=== PATIENT | male | born 1970 | race Caucasian/White ===

== ENCOUNTER 2018-12-21 11:36 | Emergency (ER) | payer BC, SELFPAY ==
[2018-12-21 11:39] VITALS: BP 123/83; PULSE 103; RESP 18; TEMP 36.3; O2SAT 96
--- NOTE | 2018-12-21 11:46 | W.ED.GENAD ---
Discharge Plan Disposition Patient Disposition: HOME Condition: Fair Discharge Details Chief Complaint: GenMedical Clinical Impression: Flu-like symptoms Primary Care Provider: None,None ED Provider: Prachi Nagel Home Meds and New Rx's Prescriptions: No Action No Known Home Meds RF: 0 Discharge Instructions Instructions: Influenza (ED) Additional Instructions: Continue to encourage hydration. Tylenol and ibuprofen as needed for discomfort. Stop smoking. chest pain coordinator will contact you in regard to establishing primary care. If you develop fever/chills, shortness of breath, difficulty breathing, inability to stay hydrated or other new/worsening symptoms please seek care urgently once again. Stand Alone Forms: Work Release Medical Decision Making Patient is a 48-year-old male presenting today with flulike illness. He reports that he has had symptoms for the past 5 days. Endorses cough, congestion, sore throat. Denies any GI upset. Endorses body aches and fevers. Reports that overall he is feeling much improved. States that he has a mild lingering cough at this time but otherwise symptoms have resolved. However, patient was unable to go to work with his flulike illness and presents today at the request of his employer for evaluation. Patient is an active smoker, encourage smoking cessation. On exam, he appears nontoxic with stable vital signs. Lungs are clear, no respiratory distress. Plan to discharge patient home diagnosis of flulike illness that is now improving. Work note given. We discussed new/worsening symptoms and when to seek care urgently once again. I have asked our home care associate to help facilitate follow-up with primary care. All of his questions and concerns were addressed and he is in agreement this plan. HPI General Mode of arrival: ambulatory. Date/Time Provider Initiated Documentation: 12/21/18 11:42. Limitations to Documentation: no limitations. Information obtained by: patient. History of Present Illness 48 year old M presents to the emergency department with the chief complaint of flu like illness, described as mild, Patient started experiencing this day(s) (5) and it has been other (improving). No relieving factors improve symptom(s), No exacerbating factors reported . Patient notes cough, fever/chills (none currently) and headaches (improved); denies chest pain, loss of appetite, nausea/vomiting, rash and shortness of breath. Patient did receive the following treatments prior to arrival, none Related Data Home Medications Medication Instructions Recorded Confirmed Unknown [No Known Home Meds] 08/22/15 08/22/15 Allergies Allergy/AdvReac Type Severity Reaction Status Date / Time No Known Drug Allergies Allergy Unverified 07/29/15 12:52 General Stated Complaint: GenMedical MICHELLE: 4 Review of Systems Constitutional Reports as per HPI, Reports chills, Reports fatigue, Reports fever(s), Denies headache(s) and Denies poor appetite Eyes Reports as per HPI, Denies eye discharge and Denies irritation ENT Denies headache(s), Reports nasal congestion, Reports nasal discharge, Reports sore throat, Denies throat swelling and Denies tongue swelling Cardiovascular Reports as per HPI, Denies chest pain and Denies dyspnea Respiratory Reports as per HPI, Reports cough, Denies pain on inspiration, Denies pain with cough, Denies dyspnea, Denies stridor and Denies wheezing Gastrointestinal Reports as per HPI, Denies abdominal pain, Denies change in bowel habits, Denies nausea and Denies vomiting Integumentary/Breasts Reports as per HPI and Denies rash Neurologic Denies headache(s) Endocrine Reports fatigue Allergic/Immunologic Denies throat swelling, Denies tongue swelling and Denies wheezing [facility] Surgical History EXE R SIDED NECK MASS (08/22/15) Social History Smoking/Tobacco Use Status: Current every day Exam Const General: cooperative, healthy appearing, comfortable, no acute distress, well developed and well groomed Nutritional Appearance: average body habitus and well nourished Orientation: alert and awake [facility] Head: normal to inspection, normocephalic and atraumatic Ears: hearing grossly normal bilaterally, external ears normal and TM's normal bilaterally General nose exam: external nose normal and nares normal Face and sinus: normal facial exam, sinuses nontender and face symmetric Mouth: oral mucosae normal, lip normal, tongue normal, oropharynx normal and moist mucous membranes Teeth and gingiva: dentition normal Throat: posterior oropharynx normal, tonsils normal and uvula midline Eyes General: appearance normal, both eyes and all related structures Neck Neck: normal visual inspection, full ROM, no lymphadenopathy and no meningeal signs Resp Effort & Inspection: normal respiratory effort, able to speak in complete sentences and no respiratory distress Auscultation: clear to auscultation bilaterally, no rales, no rhonchi and no wheezes Cardio Rate: regular rate Rhythm: regular rhythm Heart Sounds: S1 normal and S2 normal Skin General skin exam: no rashes or lesions noted Neuro General: alert and awake Cognition: normal cognition Speech: speech normal Gait: normal gait Psych Appearance: grossly normal and well kempt Mental Status: mental status grossly normal Speech and Movement: speech and movement normal Course Vital Signs Temperature 36.3 C L 12/21/18 11:39 Pulse 103 H 12/21/18 11:39 Respiratory Rate 18 12/21/18 11:39 Blood Pressure 123/83 12/21/18 11:39 Pulse Oximetry 96 12/21/18 11:39 Temperature 36.3 C L 12/21/18 11:39 Temperature Source Temporal Artery Scan 12/21/18 11:39 Pulse 103 H 12/21/18 11:39 Respiratory Rate 18 12/21/18 11:39 Respiratory Effort Non-Labored 12/21/18 11:43 Respiratory Depth Normal 12/21/18 11:43 Blood Pressure 123/83 12/21/18 11:39 Blood Pressure Position Sitting 12/21/18 11:39 Pulse Oximetry 96 12/21/18 11:39 Oxygen Delivery Method Room Air 12/21/18 11:39 Oxygen Flow Rate 0 12/21/18 11:39 Pain Level 0 12/21/18 11:39
--- NOTE | 2018-12-21 11:56 | ED.GENADUL_ITS ---
Discharge Plan Disposition Patient Disposition: HOME Condition: Fair Discharge Details Chief Complaint: GenMedical Clinical Impression: Flu-like symptoms Primary Care Provider: None,None ED Provider: Prachi Nagel Home Meds and New Rx's Prescriptions: No Action No Known Home Meds RF: 0 Discharge Instructions Instructions: Influenza (ED) Additional Instructions: Continue to encourage hydration. Tylenol and ibuprofen as needed for discomfort. Stop smoking. laboratory coordinator will contact you in regard to establishing primary care. If you develop fever/chills, shortness of breath, difficulty breathing, inability to stay hydrated or other new/worsening symptoms please seek care urgently once again. Stand Alone Forms: Work Release Medical Decision Making Patient is a 48-year-old male presenting today with flulike illness. He reports that he has had symptoms for the past 5 days. Endorses cough, congestion, sore throat. Denies any GI upset. Endorses body aches and fevers. Reports that overall he is feeling much improved. States that he has a mild lingering cough at this time but otherwise symptoms have resolved. However, patient was unable to go to work with his flulike illness and presents today at the request of his employer for evaluation. Patient is an active smoker, encourage smoking cessation. On exam, he appears nontoxic with stable vital signs. Lungs are clear, no respiratory distress. Plan to discharge patient home diagnosis of flulike illness that is now improving. Work note given. We discussed new/worsening symptoms and when to seek care urgently once again. I have asked our child care attendant school to help facilitate follow-up with primary care. All of his questions and concerns were addressed and he is in agreement this plan. HPI General Mode of arrival: ambulatory . Date/Time Provider Initiated Documentation: 12/21/18 11:42 . Limitations to Documentation: no limitations . Information obtained by: patient . History of Present Illness 48 year old M presents to the emergency department with the chief complaint of flu like illness, described as mild, Patient started experiencing this day(s) (5) and it has been other (improving). No relieving factors improve symptom(s), No exacerbating factors reported . Patient notes cough, fever/chills (none currently) and headaches (improved); denies chest pain, loss of appetite, nausea/vomiting, rash and shortness of breath. Patient did receive the following treatments prior to arrival, none Related Data Home Medications Medication Instructions Recorded Confirmed Unknown [No Known Home Meds] 08/22/15 08/22/15 Allergies Allergy/AdvReac Type Severity Reaction Status Date / Time No Known Drug Allergies Allergy Unverified 07/29/15 12:52 General Stated Complaint: GenMedical MICHELLE: 4 Review of Systems Constitutional Reports as per HPI, Reports chills, Reports fatigue, Reports fever(s), Denies headache(s) and Denies poor appetite Eyes Reports as per HPI, Denies eye discharge and Denies irritation ENT Denies headache(s), Reports nasal congestion, Reports nasal discharge, Reports sore throat, Denies throat swelling and Denies tongue swelling Cardiovascular Reports as per HPI, Denies chest pain and Denies dyspnea Respiratory Reports as per HPI, Reports cough, Denies pain on inspiration, Denies pain with cough, Denies dyspnea, Denies stridor and Denies wheezing Gastrointestinal Reports as per HPI, Denies abdominal pain, Denies change in bowel habits, Denies nausea and Denies vomiting Integumentary/Breasts Reports as per HPI and Denies rash Neurologic Denies headache(s) Endocrine Reports fatigue Allergic/Immunologic Denies throat swelling, Denies tongue swelling and Denies wheezing FOR[facility]LY [facility] Surgical History EXE R SIDED NECK MASS (08/22/15) Social History Smoking/Tobacco Use Status: Current every day Exam Const General: cooperative, healthy appearing, comfortable, no acute distress, well developed and well groomed Nutritional Appearance: average body habitus and well nourished Orientation: alert and awake [facility] Head: normal to inspection, normocephalic and atraumatic Ears: hearing grossly normal bilaterally, external ears normal and TM's normal bilaterally General nose exam: external nose normal and nares normal Face and sinus: normal facial exam, sinuses nontender and face symmetric Mouth: oral mucosae normal, lip normal, tongue normal, oropharynx normal and moist mucous membranes Teeth and gingiva: dentition normal Throat: posterior oropharynx normal, tonsils normal and uvula midline Eyes General: appearance normal, both eyes and all related structures Neck Neck: normal visual inspection, full ROM, no lymphadenopathy and no meningeal signs Resp Effort & Inspection: normal respiratory effort, able to speak in complete sentences and no respiratory distress Auscultation: clear to auscultation bilaterally, no rales, no rhonchi and no wheezes Cardio Rate: regular rate Rhythm: regular rhythm Heart Sounds: S1 normal and S2 normal Skin General skin exam: no rashes or lesions noted Neuro General: alert and awake Cognition: normal cognition Speech: speech normal Gait: normal gait Psych Appearance: grossly normal and well kempt Mental Status: mental status grossly normal Speech and Movement: speech and movement normal Course Vital Signs Temperature 36.3 C L 12/21/18 11:39 Pulse 103 H 12/21/18 11:39 Respiratory Rate 18 12/21/18 11:39 Blood Pressure 123/83 12/21/18 11:39 Pulse Oximetry 96 12/21/18 11:39 Temperature 36.3 C L 12/21/18 11:39 Temperature Source Temporal Artery Scan 12/21/18 11:39 Pulse 103 H 12/21/18 11:39 Respiratory Rate 18 12/21/18 11:39 Respiratory Effort Non-Labored 12/21/18 11:43 Respiratory Depth Normal 12/21/18 11:43 Blood Pressure 123/83 12/21/18 11:39 Blood Pressure Position Sitting 12/21/18 11:39 Pulse Oximetry 96 12/21/18 11:39 Oxygen Delivery Method Room Air 12/21/18 11:39 Oxygen Flow Rate 0 12/21/18 11:39 Pain Level 0 12/21/18 11:39
--- NOTE | 2018-12-22 07:56 | PDOC.ERCMPRO ---
Care Management Progress Note 12/22-Prachi WASHINGTON requested assistance with establishing a PCP (Freddy Quesada information management specialist). No ED f/u needed. Referral faxed to [facility] this am.
--- NOTE | 2018-12-22 07:58 | CMPROGNOTE_ITS ---
Care Management Progress Note 12/22-Prachi WASHINGTON requested assistance with establishing a PCP (Freddy Quesada catalytic converter operator helper). No ED f/u needed. Referral faxed to [facility] this am.
== END 2018-12-21 11:52 | disposition home or self-care (01) ==
PROVIDERS: Emergency Provider Physician Assistant
DX: J11.1 Influenza due to unidentified influenza virus with other respiratory manifestations (principal); F17.210 Nicotine dependence, cigarettes, uncomplicated
CPT/HCPCS: 99282

== ENCOUNTER 2019-09-12 13:04 | Emergency (ER) | payer BC, SELFPAY ==
[2019-09-12 13:14] VITALS: BP 128/81; PULSE 98; RESP 18; TEMP 36.7; O2SAT 96
[2019-09-12] MEDS: HYDROcodone 5/Acetaminophen 325 TAB PO (13:40)
[2019-09-12] MEDS: Ibuprofen 600 MG TAB PO (13:40)
--- NOTE | 2019-09-12 14:00 | DI.RAD_ITS ---
EXAM: XR CLAVICLE RT INDICATION: fall, midshaft and lateral pain. COMPARISON: XR SHOULDER RT COMPLETE 2+V from 09/12/2019 TECHNIQUE: 2D digital imaging was performed. FINDINGS: There is a comminuted fracture in the mid clavicle. There is significant separation of fracture fragm ents. AC joint is intact. There are severe degenerative changes at the glenohumeral joint with a iza ne-on-bone appearance. There is prominent spurring inferiorly at the humeral head. No glenoid or hu meral fracture or dislocation is seen. IMPRESSION: Comminuted midclavicular fracture.
--- NOTE | 2019-09-12 14:31 | ED.GENADUL_ITS ---
Discharge Plan Disposition Patient Disposition: HOME Condition: Stable Discharge Details Chief Complaint: Orthopedic Clinical Impression: Closed fracture of right clavicle Primary Care Provider: None,None ED Provider: Telly Cross Home Meds and New Rx's Prescriptions: No Action aspirin 81 mg tablet,delayed release (DR/EC) 81 mg PO DAILY Qty: 14 RF: 0 naproxen 250 mg tablet 250 mg PO BID PRN (Reason: pain, moderate) Qty: 60 RF: 0 oxycodone 5 mg tablet 5 mg PO Q4H MDD 60mg PRN (Reason: pain, severe) Qty: 36 RF: 0 Discharge Instructions Instructions: Clavicle Fracture (ED) Additional Instructions: Upon discharge please go straight to the orthopedic office for examination and arrangement of further treatment of your fracture. Referrals: Sy Jay MD [ [facility] STAFF PHYSICIAN] - Discharge Data Discharge Date/Time-TO BE ENTERED AT DEPARTURE: 09/12/19 14:58 Medical Decision Making Patient presenting to the emergency department for chief complaint of right shoulder injury. Patient states he was going down some steps this morning and fell and landed on his right shoulder. Patient does state that he barely struck his head but denies any headache, neurological symptoms and states he is sign ificantly concerned about his right shoulder and difficulty moving it. Patient denies any chest pain, shortness of breath, or difficulty breathing. Physical exam shows severely tender midshaft clavicle and AC joint otherwise unremarkable exam. Plan to send patient to radiological imaging for rule out of acute fracture. Review of radiological imaging shows a significant and severe midshaft clav icular fracture. I did call and speak with Dr. Jay orthopedist given that I do feel that patient may need surgery sooner than later. After speaking with him he stated that he wanted patient discharged from the emergency department and sent directly over to their office for evaluation and presurgical consultation. Patient placed in sling and otherwise discharged with clear instructions to go straight to orthopedic office. After discussion of diagnosis and plan of care patient has no further needs, questions, or concerns and states clear understanding to return to the emergency department for any worsening symptoms. HPI General Mode of arrival: ambulatory . Date/Time Provider Initiated Documentation: 09/12/19 13:08 . Limitations to Documentation: no limitations . Information obtained by: patient . History of Present Illness 49 year old M presents to the emergency department with the chief complaint of Right shoulder injury, described as moderate, with intensity rated at 9. Quality is described as sharp, and is localized to the right and upper extremity. Patient started experiencing this hour(s) (6) and it has been constant. Movement worsens symptoms . Patient notes no other symptoms.. Patient did receive the following treatments prior to arrival, none Related Data Home Medications Medication Instructions Recorded Confirmed aspirin 81 mg tablet,delayed 81 mg PO DAILY #14 tab 09/12/19 09/14/19 release naproxen 250 mg tablet 250 mg PO BID PRN #60 tab 09/12/19 09/14/19 oxycodone 5 mg tablet 5 mg PO Q4H PRN #36 tab MDD 60mg 09/14/19 09/14/19 Previous Rx's Medication Instructions Recorded aspirin 81 mg tablet,delayed 81 mg PO DAILY #14 tab 09/12/19 release naproxen 250 mg tablet 250 mg PO BID PRN #60 tab 09/12/19 oxycodone 5 mg tablet 5 mg PO Q4H PRN #36 tab MDD 60mg 09/14/19 Allergies Allergy/AdvReac Type Severity Reaction Status Date / Time No Known Drug Allergies Allergy Unverified 09/14/19 06:03 General Stated Complaint: Orthopedic MICHELLE: 4 Review of Systems Cardiovascular Cardiovascular: Denies syncope Musculoskeletal Musculoskeletal: Reports as per HPI, Denies numbness and Denies tingling Integumentary/Breasts Skin/Breast: Denies rash, Denies sores and Denies wounds Neurologic Neurologic: Denies syncope, Denies numbness and Denies tingling [facility] Social History Smoking/Tobacco Use Status: Current every day Tobacco Type: cigarettes Years smoked: 20 Alcohol Intake: current Alcohol Intake frequency: other Alcohol type: hard liquor Drug use: Never Details: pt states he drinks 6-7 drinks 3 times a week, but hasnt had anything since this happened on 09/12 and also quit smoking at that time. Pt states has smoked marijuana in the past, about a year ago. Current gender identity: male Do you feel safe at home: Yes Do you feel safe in your relationship?: Yes Exam Const General: cooperative and no acute distress Orientation: alert, awake and oriented x3 Resp Effort & Inspection: normal respiratory effort and able to speak in complete sentences Cardio Rate: regular rate Rhythm: regular rhythm Extrem Right upper extremity: shoulder/upper arm Details: tenderness Location: of the clavicle Laterality: mid-shaft and laterally and of the A-C joint, axillary nerve sensory function normal, abnormal ROM Details: held in an abnormal fashion Details: in ADduction and in internal rotation and deformity Location: of the clavicle Location: mid-shaft and laterally, elbow/forearm Details: normal to inspection and normal ROM; no tenderness, wrist Details: normal to inspection, normal ROM and normal vascular exam; no tenderness and hand Details: neuromotor exam normal, neurosensory exam normal and normal ROM of fingers; no tenderness Course Vital Signs Vital signs: Vital Signs Temperature 36.7 C 09/12/19 13:14 Pulse 98 H 09/12/19 13:14 Respiratory Rate 18 09/12/19 13:14 Blood Pressure 128/81 09/12/19 13:14 Pulse Oximetry 96 09/12/19 13:14 Temperature 36.7 C 09/12/19 13:14 Temperature Source Skin 09/12/19 13:14 Pulse 98 H 09/12/19 13:14 Respiratory Rate 18 09/12/19 13:14 Respiratory Effort Non-Labored 09/12/19 13:16 Blood Pressure 128/81 09/12/19 13:14 Blood Pressure Position Sitting 09/12/19 13:14 Pulse Oximetry 96 09/12/19 13:14 Oxygen Delivery Method Room Air 09/12/19 13:14 Oxygen Flow Rate 0 09/12/19 13:14 Pain Level 10 09/12/19 13:14
== END 2019-09-12 14:58 | disposition home or self-care (01) ==
PROVIDERS: Emergency Provider Nurse Practitioner Family
DX: S42.021A Displaced fracture of shaft of right clavicle, initial encounter for closed fracture (principal); W10.8XXA Fall (on) (from) other stairs and steps, initial encounter
CPT/HCPCS: 99283; 73000; 73030; L3650

== ENCOUNTER 2019-09-14 05:55 | Day surgery (SDC) | payer BC, SELFPAY ==
[2019-09-14 06:05] VITALS: BP 126/97; PULSE 78; RESP 18; TEMP 37; O2SAT 96
[2019-09-14] MEDS: Lactated Ringers 1,000 ML 100 ML IV ×2 (06:56→10:38)
--- NOTE | 2019-09-14 07:05 | W.PM.DSUDISC ---
Discharge Plan Disposition Patient Disposition: HOME Condition: Stable Discharge Details Reason For Visit: (R) CLAVICLE FX Attending Provider: Sy Jay Primary Care Provider: None,None Home Meds and New Rx's Prescriptions: New oxycodone 5 mg tablet 5 mg PO Q4H MDD 60mg PRN (Reason: pain, severe) Qty: 36 RF: 0 Continued aspirin 81 mg tablet,delayed release (DR/EC) 81 mg PO DAILY Qty: 14 RF: 0 naproxen 250 mg tablet 250 mg PO BID PRN (Reason: pain, moderate) Qty: 60 RF: 0 Discharge Instructions Additional Instructions: Surgery: Right clavicle open reduction internal fixation Activity: Non-weightbearing in sling for comfort. Use sling when out of home. May use right arm for activities of daily living. Prescriptions: Aspirin 81 mg take 1 daily to prevent a blood clot Naproxen 250 mg take 1-2 every 12 hours with a meal as needed for moderate pain Oxycodone 5 mg take 1-2 every 4-6 hours as needed for severe pain You may use [id number] Tylenol (acetaminophen) as needed for mild pain. These different pain medications may be taken all at once or in different combinations as needed. Also, recommend Colace (docusate) as a stool softener as surgery and pain medicine cause constipation. Dressings: Leave dressings in place for 5-7 days. Keep clean and dry. May remove after 5-7 days and shower. May cover incision with a Band-Aid as needed. Follow-up: 10-[address] Jay Please call the office during business hours with any questions or concerns. Let us know right away if you develop any redness, drainage, fevers, chest pain, or trouble breathing. Do not drink alcohol or drive for at least 24 hours after anesthesia. Referrals: Sy Jay MD [ [facility] STAFF PHYSICIAN] - Discharge Orders Discharge Orders: Discharge Order (Routine); Ordered 09/14/19 Ordered By: Sy Jay DS: Diagnosis Discharge Diagnosis (1) Right clavicle fracture: Status: Acute (2) Arthritis of right glenohumeral joint: Status: Chronic
--- NOTE | 2019-09-14 07:18 | ROE_ITS ---
Operative Note Operative Note DATE OF PROCEDURE: 09/14/19 PRE-OP DIAGNOSIS: 1. Right displaced midshaft clavicle fracture POST-OP DIAGNOSIS: same PROCEDURE: 1. Right clavicle ORIF SURGEON: Sy Jay INSURANCE APPRAISER: Charlene Rivers ANESTHESIA: GETA and local ESTIMATED BLOOD LOSS: 15 COMPLICATIONS: None Patient was transported to: PACU Patient's condition: stable Implants: 3.5 mm LCP Superior Clavicle Plate 7 hole 1x 3.5 mm cortex lag screw 1x 4.0 mm partially-threaded cancellous lag screw 6x 3.5 mm cortex screws through the plate Indications: Please see complete medical record for details. Findings: Segmental and comminuted right displaced midshaft clavicle fracture Procedure Description: The patient was taken to the operating room and transferred to the operating room table. All bony prominences were well-padded. Preoperative antibiotics were administered. The right clavicle was prepped and draped in the usual sterile fashion. The correct patient, procedure, and side of the procedure were all verified prior to incision. 20 cc of 1% lidocaine with epinephrine was infiltrated about the skin, platysma, and subcutaneous tissues about the clavicle fracture. A longitudinal incision was made over the anterior margin of the clavicle centered about the fracture site. Sharp dissection and Bovie cautery were used to raise one full-thickness flap down to clavicle bone. Care was taken to preserve any supraclavicular nerves. Soft tissue and clot were removed from the fracture site. A small piece of devitalized comminuted bone was removed. Elevators were used to exposed the superior margin of the clavicle medially and laterally from the fracture site to visualize reduction and for plating. Care was taken to preserve all muscular attachments both superiorly and inferiorly to the clavicle to preserve blood supply to the fracture site for optimal healing. A combination of clamps were used to provisionally reduce a lateral segmental oblique fracture fragment to the lateral clavicle. This was fixated in a lag by technique fashion with a 3.5 mm cortex screw. The lateral and medial clavicles were then reduced and another 3.5 mm lag screw was placed. Unfortunately this lecture did not have great purchase in the far cortex even though it was the correctly so it was switched for a 4.0 mm partially-threaded cancellus screw that had better fixation. I then selected an appropriately length 7-hole superior clavicle plate. The plate was contoured to accommodate for the natural band in this patient's clavicle. The middle hole was centered over the fracture site and the plate was provisionally fixated using 1.25 mm threaded K wires. Fluoroscopy confirmed excellent reduction at the fracture site. The plate however was positioned slightly too far posteriorly at the lateral most screw hole so this was adjusted anterior and the position was confirmed again on AP and lateral fluoroscopy and under direct visual inspection and palpation with a snap. 3 bicortical 3.5 mm cortex screws were then appropriately predrilled, measured, and placed to the plate both medially and laterally to the fracture site. Once again all hardware and fracture were checked on AP, cephalad tilt, and over the top axial fluoroscopy, which confirmed excellent fracture site reduction and appropriate placement of our hardware. The wound was copiously irrigated with normal saline. Deep tissue was closed over the plate watertight using 0 Vicryl in a buried interrupted fashion. Subcutaneous tissues were infiltrated with 20 cc of 0.5% bupivacaine with epinephrine for postoperative analgesia. The superficial layer was also irrigated with normal saline. Subcutaneous tissues were closed using 2-0 Monocryl in a buried interrupted fashion. Skin was closed using 3-0 Monocryl in a buried running sub-cuticular fashion. The incision site was covered with skin glue, Telfa, dry gauze, and a Tegaderm dressing was applied over the top. The patient awoke from anesthesia without complication. A sling was placed on the right upper extremity for immobilization. He was transferred to the recovery room in stable condition.
[2019-09-14] MEDS: ceFAZolin 3,000 MG in Normal Saline 100 ML 200 MG IVPB (07:42)
--- NOTE | 2019-09-14 10:23 | DI.RAD_ITS ---
EXAM: XR CLAVICLE RT LIMITED 1V CLINICAL HISTORY: FRACTURED RIGHT CLAVICLE TECHNIQUE: C-arm fluoroscopy. COMPARISON: No exams were available for comparison FINDINGS: Fluoroscopy was provided in the OR. Hard copy images show placement of a fixation plate across the distal clavicle for fracture fixation. The alignment appears anatomic. IMPRESSION:
[2019-09-14] MEDS: Bupivacaine 0.5% Pres-Free 30 ML VIAL (10:38)
[2019-09-14 10:50] VITALS: BP 131/56; PULSE 80; RESP 11; TEMP 37.1; O2SAT 95
[2019-09-14 10:55] VITALS: BP 108/95; PULSE 90; RESP 17; TEMP 37.1; O2SAT 97
[2019-09-14 11:00] VITALS: BP 126/74; PULSE 79; RESP 16; TEMP 37.1; O2SAT 95
[2019-09-14 11:15] VITALS: BP 129/77; PULSE 74; RESP 12; TEMP 36.8; O2SAT 97
[2019-09-14 12:15] VITALS: BP 127/77; PULSE 77; RESP 18; TEMP 36.2; O2SAT 96
== END 2019-09-14 12:55 | disposition home or self-care (01) ==
PROVIDERS: Visit Provider Student in an Organized Health Care Education/Training Program
PROC: (CPT 23515; principal; 2019-09-14 07:30)
DX: S42.021A Displaced fracture of shaft of right clavicle, initial encounter for closed fracture (principal); W10.8XXA Fall (on) (from) other stairs and steps, initial encounter; F17.210 Nicotine dependence, cigarettes, uncomplicated
CPT/HCPCS: 23515; C1713; 73000; J0690; J1100; J1885; J2405; J3010

== ENCOUNTER 2019-09-26 09:34 | Outpatient (CLI) | payer BC, SELFPAY ==
--- NOTE | 2019-09-26 09:25 | DI.RAD_ITS ---
EXAM: XR CLAVICLE RT INDICATION: 1ST POST OP. COMPARISON: XR CLAVICLE RT from 09/12/2019 XR CLAVICLE RT LIMITED 1V from 09/14/2019 TECHNIQUE: 2D digital imaging was performed. FINDINGS: There is again seen a sideplate and screws transfixing the right clavicular fracture. There is uncha nged alignment of the fracture. Note is made of severe degenerative changes of the glenohumeral join t. IMPRESSION: Stable right clavicular fracture.
== END 2019-09-26 09:54 ==
PROVIDERS: Visit Provider Student in an Organized Health Care Education/Training Program
DX: S42.021A Displaced fracture of shaft of right clavicle, initial encounter for closed fracture (principal)
CPT/HCPCS: 73000

== ENCOUNTER 2019-10-24 08:08 | Outpatient (CLI) | payer BC, SELFPAY ==
--- NOTE | 2019-10-24 08:02 | DI.RAD_ITS ---
EXAM: XR CLAVICLE RT CLINICAL HISTORY: F/U FRACTURE TECHNIQUE: COMPARISON: XR CLAVICLE RT from 09/26/2019 FINDINGS: Two views were obtained and show previously described plate and screw fixation of mid clavicular frac ture. No change in alignment in comparison with previous examination of September 26. 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 IMPRESSION:
== END 2019-10-24 08:28 ==
PROVIDERS: Visit Provider Student in an Organized Health Care Education/Training Program
DX: S42.021D Displaced fracture of shaft of right clavicle, subsequent encounter for fracture with routine healing (principal)
CPT/HCPCS: 73000